=== PATIENT | male | born 1955 | race Caucasian/White ===

== ENCOUNTER 2016-11-08 15:59 | Emergency (ER) | payer OTHER ==
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
[~2016-11-08 15:59] MED LIST: ALEVE220 M1 PO; CELEXA20 MG PO; CEPHALEXIN500 M1 PO; CLEOCIN150 M1 PO; FLAGYL PO; FOLIC ACID1 MG PO; MULTI VITAMIN1 EACH PO; MULTI-DAY VITAM1 TAB PO; MULTI-VITAMIN1 EAC1 PO; OMEPRAZOLE40 MG PO; PERCOCET 5-3251 TAB PO; PERCOCET 51 UDTAB 5/ PO; PERCOCET10 PO; PERIDEX480 ML PO; THIAMINE HCL100 M1 PO; THIAMINE HCL100 MG PO
== END 2016-11-08 17:57 | disposition home or self-care (01) ==
LOC: CFTX 15:59
DX: S83.92XA Sprain of unspecified site of left knee, initial encounter (principal); F17.210 Nicotine dependence, cigarettes, uncomplicated; V49.10XA Passenger injured in collision with unspecified motor vehicles in nontraffic accident, initial encounter
CPT/HCPCS: 29530; 73562; 96372; 99283; J1885

== ENCOUNTER 2017-02-27 11:14 | Emergency (ER) | payer OTHER ==
[~2017-02-27] VITALS: Ht 177.8 cm; Wt 76.2 kg
--- NOTE | ~2017-02-27 | CR72 ---
[facility] A Service of [facility] RADIOLOGY TEXT RESULTS PATIENT: LUBA JARAMILLO LOCATION: [facility] : 59 UNIT #: [id number] AGE: [address]: Leland Estevez MD SEX: M ORDER DR: [id number] [place] [id number] [facility]. [place], [place] [address] [id number] E MR#: [id number] Acc #: [id number] NAME: LUBA JARAMILLO. : 1955 SEX: M STUDY DATE/TIME: 02/27/2017 11:48 UNIT: [facility] ROOM: STUDY DESCRIPTION: CR Chest Single View Portable Attending Physician: Leland Estevez M.D. Ordering Physician: Leland Estevez M.D. Primary Care Physician: No Primary Care Physician MEDICAL IMAGING REPORT This report is preliminary unless electronic signature is present EXAM AP portable chest. DATE 02/27/2017 HISTORY Cough and shortness breath for 2 weeks. Greater than 30-year smoking history. COMPARISON AP portable chest, 07/08/2015. FINDINGS Lungs appear hyperinflated and emphysematous. No acute airspace disease is identified. Benign calcified granuloma in the right midlung, unchanged. Heart size is normal. No pleural effusion or pneumothorax or acute osseous abnormalities. IMPRESSION AND PLAN 1. No acute chest findings. Probable mild emphysematous changes. 2. Stable benign calcified granuloma in the right mid lung. Dictated by... Cecilia Jolly M.D. THIS IS AN ELECTRONICALLY VERIFIED REPORT Cecilia Jolly M.D. at 02/28/2017 8:31 AM [facility]/karen TD: 02/27/2017 19:11 [facility] A Service of [facility] RADIOLOGY TEXT RESULTS PATIENT: LUBA JARAMILLO LOCATION: [facility] : 59 UNIT #: [id number] AGE: [address]: Leland Estevez MD SEX: M ORDER DR: DAVONTE #: [id number] MEDICAL IMAGING REPORT Page 1 of 1 COPY
--- NOTE | ~2017-02-27 | EKG ---
PATIENT: LUBA JARAMILLO UNIT #: [id number] Ventricular Rate: 95 BPM Atrial Rate: 95 BPM P-R Interval: 152 ms QRS Duration: 82 ms Q-T Interval: 380 ms QTC Calculation(Bezet): 477 ms P Malone: 65 degrees Calculated R Malone: 12 degrees Calculated T Malone: 34 degrees Diagnosis Line: Normal sinus rhythm Diagnosis Line: Septal infarct , age undetermined Diagnosis Line: Abnormal ECG Diagnosis Line: When compared with ECG of 28-JUN-2015 16:01, Diagnosis Line: Vent. rate has increased BY 31 BPM Diagnosis Line: Septal infarct is now Present Diagnosis Line: QT has lengthened Diagnosis Line: Confirmed by JAELYN MARR MD ([id number]) on 02/28/2017 Diagnosis Line: 11:40:31 PM INTERPRETING MD: TEJINDER JENSEN
[2017-02-27 11:46] LABS: BASOPHIL# 0.1 X10e3 (0-0.3); BASOPHIL% 0.9 % (0-2.5); EOSINOPHIL% 0.5 % (0.0-7.0); HEMATOCRIT 47.1 % (38.0-50.0); HEMOGLOBIN 15.5 gm/dL (13.0-16.0); LYMPHOCYTE# 1.1 X10e3 (1.0-3.5); MEAN CELL VOLUME 98.3 FL (83-96); MEAN CORPUSCULAR HEMOGLOBIN 32.4 PG (28-34); MEAN CORPUSCULAR HGB CONC 32.9 g/dL (30-36); MEAN PLATELET VOLUME 8.6 FL (6.5-11.5); MONOCYTE# 0.7 X10e3 (0-1.0); MONOCYTE% 10.1 % (3.0-12.0); NEUTROPHIL# 4.8 X10e3 (1.5-7.1); NEUTROPHIL% 71.5 % (40-75); PLATELET COUNT 148 X10e3 (140-420); RED BLOOD COUNT 4.79 X10e (3.90-5.60); RED CELL DISTRIBUTION WIDTH 16.5 % (11.0-15.5); WHITE BLOOD COUNT 6.7 X10e3 (4.0-10.5)
[2017-02-27 11:47] LABS: DIFF IND NO
[2017-02-27 12:25] LABS: ALBUMIN SERUM 3.5 g/dL (3.5-5.0); BILIRUBIN, DIRECT 0.2 mg/dL (0.0-0.2); BILIRUBIN,INDIRECT 0.5 mg/dL (0.0-0.9); BILIRUBIN,TOTAL 0.7 mg/dL (0.2-2.0); BUN/CREATININE RATIO 6.25; CALCIUM SERUM 8.5 mg/dL (8.4-10.2); CREATININE SERUM 0.8 mg/dL (0.6-1.4); GLOM FILT RATE Estimated 97.8 mL/min (>60); POTASSIUM 3.2 mmol/L (3.5-5.1); PROTEIN TOTAL SERUM 7.1 g/dL (6.0-8.3)
[2017-02-27 15:06] LABS: URINE SOURCE CLEAN CATCH
[2017-02-27 15:10] LABS: URINE APPEARANCE CLOUDY; URINE BILIRUBIN NEG (NEG); URINE BLOOD NEG (NEG); URINE COLOR YELLOW; URINE GLUCOSE NEG (NEG); URINE KETONE TRACE (NEG); URINE LEUKOCYTE ESTERASE NEG (NEG); URINE NITRATE NEG (NEG); URINE PH 6.5 (5-8); URINE PROTEIN 1+ (NEG); URINE SPECIFIC GRAVITY 1.017 (1.003-1.035)
[2017-02-27 15:13] LABS: URINE BACTERIA AUWI NEG (NEGATIVE); URINE SQUAMOUS EPITHELIAL CELL NONE SEEN /[HPF]; UWBCS1 AUWI 0-2 (0-5)
[2017-02-27 15:19] LABS: CULTURE INDICATED? NO
== END 2017-02-27 15:39 | disposition home or self-care (01) ==
LOC: CED 11:14
PROVIDERS: Emergency Medicine
DX: R41.0 Disorientation, unspecified (principal); R11.0 Nausea; R86.0 Abnormal level of enzymes in specimens from male genital organs; F17.200 Nicotine dependence, unspecified, uncomplicated
CPT/HCPCS: 36415; 71010; 80048; 80076; 81003; 85025; 93005; 96361; 96374; 99285; J2405

== ENCOUNTER 2017-03-07 22:41 | Emergency (ER) | payer OTHER ==
[~2017-03-07] VITALS: Ht 177.8 cm; Wt 75.7 kg
== END 2017-03-08 02:33 | disposition home or self-care (01) ==
LOC: CED 22:41
DX: F10.129 Alcohol abuse with intoxication, unspecified (principal); Y90.9 Presence of alcohol in blood, level not specified
CPT/HCPCS: 36415; 99284

== ENCOUNTER 2017-03-11 23:24 | Emergency (ER) | payer OTHER ==
[~2017-03-11] VITALS: Ht 177.8 cm; Wt 78.9 kg
== END 2017-03-12 06:20 | disposition home or self-care (01) ==
LOC: CED 23:24
DX: F10.129 Alcohol abuse with intoxication, unspecified (principal); F17.200 Nicotine dependence, unspecified, uncomplicated; Z86.19 Personal history of other infectious and parasitic diseases
CPT/HCPCS: 99285